=== PATIENT | female | born 1950 | race Caucasian/White ===

== ENCOUNTER → 2017-07-07 | Outpatient (CLI) | payer MEDICARE ==
--- NOTE | 2017-07-07 23:16 | MR ---
EXAMINATION TYPE: MR angio head wo con DATE OF EXAM: 07/07/2017 COMPARISON: NONE HISTORY: Intracranial hemorrahage in Mar 2017, left side weakness TECHNIQUE: Time of flight images focusing on the [place] of [place] were performed without contrast. FINDINGS: There is arterial flow in the anterior middle and posterior cerebral arteries. There is art erial flow in the vertebrobasilar artery system. I see no sign of aneurysm or neovascularity. There i s no mass effect. There is no evidence of arterial stenosis. There is arterial flow in both internal carotid arteries. The basilar artery appears to fill mostly from the left side. The right middle cere bral artery appears normal. IMPRESSION: Negative MR angiogram of the brain.
--- NOTE | 2017-07-07 23:32 | MR ---
EXAMINATION TYPE: MR brain wo/w con DATE OF EXAM: 07/07/2017 COMPARISON: CT brain 03/15/2017 HISTORY: TECHNIQUE: Multiplanar, multisequence images of the brain and brainstem is performed without and with IV contras t, utilizing 7.5 mL intravenous Gadavist . FINDINGS: There is a 4 x 3.5 cm area of mixed signal involving the insula right temporal lobe and the right int ernal capsule and lateral aspect of the right thalamus related to hemosiderin and methemoglobin in th e area of hemorrhagic high density lesion seen on the CT scan of 03/15/2017. The size of the lesion i s smaller than the old CT scan. There is no midline shift. There is no sign of intracranial hemorrhag e. There is extensive patchy abnormal increased signal in the white matter in both parietal lobes. The c erebellum appears intact. Brainstem is intact. There is thinning of the corpus callosum. There is a 8 x 17 mm area of enhancement in the lesion. No other regions of pathologic enhancement are identified . IMPRESSION: Mixed signal lesion in the right cerebral hemisphere with some linear pathologic enhancem ent consistent with vascular malformation and resolving cerebral parenchymal hemorrhage. The size of the hemorrhage is decreased compared to the old CT scan. There is no evidence of any new hemorrhage. There is extensive white matter signal changes in both cerebral hemispheres that is nonspecific and c ould relate to chronic small vessel ischemia. Demyelinating disease is also possible.
== END ==
LOC: RADMRIMAIN 19:39
PROVIDERS: ATTEND Psychiatry & Neurology Neurology
DX: D18.02 Hemangioma of intracranial structures (principal)
CPT/HCPCS: 82565; 70544; 70553; 36415; A9581

== ENCOUNTER → 2017-07-20 | Outpatient (CLI) | payer MEDICARE ==
--- NOTE | 2017-07-20 12:09 | FL ---
Modified barium swallow. HISTORY: Dysphagia. Modified barium swallow was performed with the department of speech pathology. The patient was prese nted with various consistencies of barium. There is no evidence for aspiration or penetration. Full report is to follow from the department of speech pathology. Impression: Normal study.
== END | disposition home or self-care (01) ==
LOC: RADFLMAIN 11:11
PROVIDERS: ATTEND Family Medicine
DX: R13.10 Dysphagia, unspecified (principal)
CPT/HCPCS: 74230

== ENCOUNTER → 2017-10-04 | Outpatient (CLI) | payer MEDICARE ==
[2017-10-04 07:41] LABS: HCT 37.7 % (34.0-46.0); HGB 12.3 gm/dL (11.4-16.0); MCH 29.6 pg (25.0-35.0); MCHC 32.7 g/dL (31.0-37.0); MCV 90.5 fL (80.0-100.0); Mean Platelet Volume 7.2; Platelet Count 163 k/uL (150-450); RBC 4.16 m/uL (3.80-5.40); RDW 13.7 % (11.5-15.5); WBC 4.3 k/uL (3.8-10.6)
[2017-10-04 07:54] LABS: Calcium 9.3 mg/dL (8.4-10.2); Potassium 4.2 mmol/L (3.5-5.1)
== END ==
LOC: LABWHC1 07:17
PROVIDERS: ATTEND Family Medicine
DX: E78.5 Hyperlipidemia, unspecified (principal); I10 Essential (primary) hypertension
CPT/HCPCS: 36415; 80048; 80061; 84450; 84460; 85027

== ENCOUNTER → 2019-02-19 | Outpatient (CLI) | payer MEDICARE ==
--- NOTE | 2019-02-20 13:31 | MM ---
Reason for exam: screening (asymptomatic). History: Patient is postmenopausal, history of other cancer, and had first child at age 33. Physical Findings: A clinical breast exam by your physician is recommended on an annual basis and results should be correlated with mammographic findings. MG Screening Mammo w CAD Bilateral CC and MLO view(s) were taken. No prior studies available for comparison. The breast tissue is heterogeneously dense. This may lower the sensitivity of mammography. Bilateral nonspecific microcalcifications. ASSESSMENT: Incomplete: need additional imaging evaluation, BI-RAD 0 RECOMMENDATION: Special view mammogram of both breasts. [facility] will attempt to contact patient to return for supplemental views.
== END | disposition home or self-care (01) ==
LOC: RADMAMWWP 15:34
PROVIDERS: ATTEND Family Medicine
DX: Z12.31 Encounter for screening mammogram for malignant neoplasm of breast (principal)
CPT/HCPCS: 77067

== ENCOUNTER → 2019-02-26 | Outpatient (CLI) | payer MEDICARE ==
--- NOTE | 2019-02-27 09:14 | MM ---
Reason for exam: additional evaluation requested from abnormal screening. Last mammogram was performed less than 1 month ago. History: Patient is postmenopausal, history of other cancer, and had first child at age 33. Physical Findings: Nurse did not find any significant physical abnormalities on exam. MG 3D Work Up W/Cad [facility] Bilateral CC and MLO view(s) were taken. Prior study comparison: February 19, 2019, bilateral MG screening mammo w CAD. The breast tissue is heterogeneously dense. This may lower the sensitivity of mammography. There are 3 groups of calcifications in the right breast. First is upper inner quadrant middle depth 4mm, 5.7mm group right upper inner quadrant posterior depth and 4mm group in the lower inner quadrant at middle depth. Middle depth groups are skin calcifications. On the left the two groups of the upper inner quadrant appear as skin calcifications. The calcifications at posterior depth of the right upper inner quadrant are just deep to the skin surface and mostly round. 6 month follow up recommended. These results were verbally communicated with the patient and result sheet given to the patient on 02/26/19. ASSESSMENT: Probably benign, BI-RAD 3 RECOMMENDATION: Follow-up diagnostic mammogram of the right breast in 6 months.
== END | disposition home or self-care (01) ==
LOC: RADMAMWWP 13:35
PROVIDERS: ATTEND Family Medicine
DX: R92.1 Mammographic calcification found on diagnostic imaging of breast (principal)
CPT/HCPCS: 77066; G0279; 77062

== ENCOUNTER 2019-05-03 08:12 | Day surgery (SDC) | payer MEDICARE ==
[2019-04-30 15:26] VITALS: BMI 27.4
[~2019-05-03 08:12] MED LIST: LACTATED RINGERS 1,000 ML IV SCH; LIDOCAINE 1% 20 ML VIAL (10MG/ML) FOR IV START INTRADERMA PRN
[2019-05-03 09:14] VITALS: RESP 16; TEMP 97.6
[2019-05-03] MEDS ORDERED: PROPOFOL 10 MG/ML 20 ML VIAL IV ONE (09:15)
--- NOTE | 2019-05-03 09:19 | P.GSHP ---
History of Present Illness H&P Date: 05/03/19 Chief Complaint: Colon cancer screening Patient here today for screening colonoscopy. She has not had one previously. No bowel related complaints. No family history of colon cancer. Past Medical History Past Medical History: Cancer, CVA/TIA, Hyperlipidemia, Hypertension, Memory Impairment Additional Past Medical History / Comment(s): CVA-02/2017-. SKIN CANCER 3 YEARS AGO History of Any Multi-Drug Resistant Organisms: None Reported Past Surgical History: Section Additional Past Surgical History / Comment(s): COLONOSCOPY. BASAL CELL REMOVED FROM LT EYEBROW. PEG TUBE INSERTED AND LATER REMOVED. BILAT CATARACTS REMOVED Past Anesthesia/Blood Transfusion Reactions: No Reported Reaction Smoking Status: Former smoker - Past Family History Father Family Medical History: Cancer Medications and Allergies Home Medications Medication Instructions Recorded Confirmed Type Aspirin 81 mg PO DAILY 03/15/17 05/03/19 History Atorvastatin [Lipitor] 40 mg PO HS 04/30/19 05/03/19 History Cholecalciferol [Vitamin D3 (25 1,000 unit PO DAILY 04/30/19 05/03/19 History Mcg = 1000 Iu)] Labetalol [Trandate] 400 mg PO TID 04/30/19 05/03/19 History Lisinopril [Zestril] 20 mg PO BID 04/30/19 05/03/19 History Multivitamin [Multivitamins Adult 1 each PO DAILY 04/30/19 05/03/19 History Gummies] amLODIPine [Norvasc] 2.5 mg PO DAILY 04/30/19 05/03/19 History Allergies Allergy/AdvReac Type Severity Reaction Status Date / Time codeine Allergy Unknown Nausea & Verified 05/03/19 08:58 Vomiting shellfish derived [Shellfish] Allergy Rash/Hives Verified 05/03/19 08:58 Surgical - Exam Vital Signs Temp Pulse Resp BP Pulse Ox 97.6 F 86 16 118/77 94 L 05/03/19 09:07 05/03/19 09:07 05/03/19 09:07 05/03/19 09:07 05/03/19 09:07 Physical exam: General: Well-developed, well-nourished HEENT: Normocephalic, sclerae nonicteric Abdomen: Nontender, nondistended Extremities: No edema Neuro: Alert and oriented Assessment and Plan (1) Colon cancer screening Narrative/Plan: Will proceed with colonoscopy Current Visit: Yes Status: Acute Code(s): Z12.11 - ENCOUNTER FOR SCREENING FOR MALIGNANT NEOPLASM OF COLON SNOMED Code(s): 318225893
--- NOTE | 2019-05-03 09:39 | P.PCN ---
Date of Procedure: 05/03/19 Procedure(s) Performed: PREOPERATIVE DIAGNOSIS: Colon cancer screening POSTOPERATIVE DIAGNOSIS: Mild diverticulosis PROCEDURE: Colonoscopy ANESTHESIA: MAC SURGEON: Miguel Angel Padgett M.D. SPECIMENS: None ENDOSCOPIC PROCEDURE: The patient was placed on the endoscopy table in the left decubitus position. The Olympus colonoscope was inserted into the anus and passed under direct visualization to the base of the cecum. The appendiceal orifice was visualized. From that point the scope was slowly withdrawn inspecting all surfaces carefully. There were no neoplastic inflammatory or polypoid lesions throughout the cecum, ascending, transverse, descending, sigmoid and rectum. There was mild left-sided diverticulosis noted. Digital rectal examination was normal. The patient was taken to the recovery room in stable condition per anesthesia guidelines. RECOMMENDATIONS: Increase fiber. Follow-up colonoscopy 10 years.
[2019-05-03 09:59] VITALS: BP 115/71; PULSE 80
== END 2019-05-03 10:44 | disposition home or self-care (01) ==
LOC: ORWHC2ENDO 08:12
PROVIDERS: ATTEND Surgery
DX: Z12.11 Encounter for screening for malignant neoplasm of colon (principal); K57.30 Diverticulosis of large intestine without perforation or abscess without bleeding; E78.5 Hyperlipidemia, unspecified; I10 Essential (primary) hypertension; R41.3 Other amnesia; Z85.828 Personal history of other malignant neoplasm of skin; Z87.891 Personal history of nicotine dependence; Z98.891 History of uterine scar from previous surgery; Z98.890 Other specified postprocedural states; Z98.41 Cataract extraction status, right eye; Z98.42 Cataract extraction status, left eye; Z86.73 Personal history of transient ischemic attack (TIA), and cerebral infarction without residual deficits; Z79.82 Long term (current) use of aspirin; Z79.899 Other long term (current) drug therapy; Z88.5 Allergy status to narcotic agent; Z91.013 Allergy to seafood
CPT/HCPCS: J2704; G0121

== ENCOUNTER → 2020-01-29 | Outpatient (CLI) | payer MEDICARE ==
--- NOTE | 2020-01-29 14:24 | MM ---
Reason for exam: follow-up at short interval from prior study. Last mammogram was performed 11 months ago. History: Patient is postmenopausal, history of other cancer, and had first child at age 33. Physical Findings: Nurse did not find any significant physical abnormalities on exam. MG 3D Diag Mammo W/Cad RT CC and MLO view(s) were taken of the right breast. Prior study comparison: February 26, 2019, bilateral MG 3d work up w/cad [facility]. February 19, 2019, bilateral MG screening mammo w CAD. The breast tissue is heterogeneously dense. This may lower the sensitivity of mammography. Only one group of calcifications is now seen in the upper inner quadrant centrally, middle to posterior depth, unchanged for 11 months. Continued short term follow up recommended. These results were verbally communicated with the patient and result sheet given to the patient on 01/29/20. ASSESSMENT: Probably benign, BI-RAD 3 RECOMMENDATION: Follow-up diagnostic mammogram of both breasts in 1 year. Back on schedule for February 2020.
== END | disposition home or self-care (01) ==
LOC: RADMAMWWP 12:55
PROVIDERS: ATTEND Family Medicine
DX: R92.8 Other abnormal and inconclusive findings on diagnostic imaging of breast (principal)
CPT/HCPCS: 77065; G0279; 77061

== ENCOUNTER → 2021-05-26 | Outpatient (CLI) | payer MEDICARE ==
--- NOTE | 2021-05-26 14:33 | MM ---
Reason for exam: additional evaluation requested from prior study. Last mammogram was performed 1 year and 4 months ago. History: Patient is postmenopausal, history of other cancer, and had first child at age 33. Physical Findings: Nurse did not find any significant physical abnormalities on exam. MG 3D Diag Mammo W/Cad [facility] Bilateral CC and MLO view(s) were taken. XCCL view(s) were taken of the right breast. Prior study comparison: January 29, 2020, right breast MG 3d diag mammo w/cad [facility]. February 26, 2019, bilateral MG 3d work up w/cad [facility]. The breast tissue is heterogeneously dense. This may lower the sensitivity of mammography. A group of microcalcifications on either side corresponds to benign skin calcifications and are unchanged. No significant new findings when compared with previous films. These results were verbally communicated with the patient and result sheet given to the patient on 05/26/21. ASSESSMENT: Benign, BI-RAD 2 RECOMMENDATION: Routine screening mammogram of both breasts in 1 year.
== END | disposition home or self-care (01) ==
LOC: RADMAMWWP 12:46
PROVIDERS: ATTEND Family Medicine
DX: R92.8 Other abnormal and inconclusive findings on diagnostic imaging of breast (principal); Z78.0 Asymptomatic menopausal state
CPT/HCPCS: 77066; G0279; 77062

== ENCOUNTER → 2023-06-22 | Outpatient (CLI) | payer MEDICARE ==
--- NOTE | 2023-06-22 10:30 | MM ---
Reason for Exam: Screening (asymptomatic). Last mammogram was performed 2 year(s) and 1 month(s) ago. Patient History: Menarche at age 12. First Full-Term at age 33. Late child-bearing (after 30). Postmenopausal. Other cancer. Risk Values: Rachel 5 year model risk: 2.2%. NCI Lifetime model risk: 5.1%. Prior Study Comparison: 02/26/2019 Bilateral Diagnostic Mammogram, [facility]. 01/29/2020 Right Diagnostic Mammogram, [facility]. 05/26/2021 Bilateral Diagnostic Mammogram, [facility]. Tissue Density: The breast tissue is heterogeneously dense. This may lower the sensitivity of mammography. Findings: Analyzed By CAD. There is no suspicious group of microcalcifications or new suspicious mass. Overall Assessment: Negative, BI-RAD 1 Management: Screening Mammogram of both breasts in [address] [facility] will attempt to contact patient to return for supplemental views and ultrasound if indicated. Patient should continue monthly self-breast exams. A clinical breast exam by your physician is recommended on an annual basis. This exam should not preclude additional follow-up of suspicious palpable abnormalities. Note on Rachel scores and lifetime risk: 1. A Rachel score greater than 3% is considered moderate risk. If this is the case, consider specialist referral to assess eligibility for a risk reducing agent. 2. If overall lifetime risk for the development of breast cancer is 20% or higher, the patient may qualify for future screening with alternating mammogram and breast MRI. Electronically signed and approved by: Michael Blas DO
== END | disposition home or self-care (01) ==
LOC: RADMAMWWP 10:04
PROVIDERS: ATTEND Family Medicine
DX: Z12.31 Encounter for screening mammogram for malignant neoplasm of breast (principal); Z78.0 Asymptomatic menopausal state
CPT/HCPCS: 77063; 77067

== ENCOUNTER → 2024-07-26 | Outpatient (CLI) | payer MEDICARE ==
--- NOTE | 2024-07-26 16:15 | MM ---
Reason for Exam: Screening (asymptomatic). Last mammogram was performed 1 year(s) and 1 month(s) ago. Patient History: Menarche at age 12. First Full-Term at age 33. Late child-bearing (after 30). Postmenopausal. Other cancer. Risk Values: Rachel 5 year model risk: 2.2%. NCI Lifetime model risk: 4.8%. Prior Study Comparison: 01/29/2020 Right Diagnostic Mammogram, [facility]. 05/26/2021 Bilateral Diagnostic Mammogram, [facility]. 06/22/2023 Bilateral MG 3D screening mammo w/cad, [facility]. Tissue Density: The breasts are heterogeneously dense, which may obscure small masses. Findings: Analyzed By CAD. Asymmetric density superior subareolar right MLO view and also superior right MLO view posterior depth. These areas appear more defined but may represent superimposition shadow. Further evaluation recommended. Similarly, an ovoid asymmetric density subareolar left MLO view is also more defined. Otherwise, no significant change. Overall Assessment: Incomplete: need additional imaging evaluation, BI-RAD 0 Management: Special View Mammogram of both breasts. [facility] will attempt to contact patient to return for supplemental views and ultrasound if indicated. [facility], , 07/26/2024 4:12 PM. Electronically signed and approved by: Kelley Hawk M.D. Radiologist
== END | disposition home or self-care (01) ==
LOC: RADMAMWWP 13:52
PROVIDERS: ATTEND Family Medicine
DX: Z12.31 Encounter for screening mammogram for malignant neoplasm of breast (principal); R92.333 Mammographic heterogeneous density, bilateral breasts; Z78.0 Asymptomatic menopausal state
CPT/HCPCS: 77063; 77067

== ENCOUNTER → 2024-08-01 | Outpatient (CLI) | payer MEDICARE ==
--- NOTE | 2024-08-01 11:30 | MM ---
Reason for Exam: Follow-up at short interval from prior study. Last screening mammogram was performed less than 1 month ago. Patient History: Menarche at age 12. First Full-Term at age 33. Late child-bearing (after 30). Postmenopausal. Other cancer. Risk Values: Rachel 5 year model risk: 2.2%. NCI Lifetime model risk: 4.8%. Prior Study Comparison: 06/22/2023 Bilateral MG 3D screening mammo w/cad, [facility]. 07/26/2024 Bilateral MG 3D screening mammo w/cad, [facility]. Tissue Density: The breasts are heterogeneously dense, which may obscure small masses. Findings: Analyzed By CAD. No persistent mass or distortion. No suspicious microcalcifications. Overall Assessment: Benign, BI-RAD 2 Management: Screening Mammogram of both breasts in 1 year. . Results were given to the patient verbally at the time of exam. Patient should continue monthly self-breast exams. A clinical breast exam by your physician is recommended on an annual basis. This exam should not preclude additional follow-up of suspicious palpable abnormalities. Note on Rachel scores and lifetime risk: 1. A Rachel score greater than 3% is considered moderate risk. If this is the case, consider specialist referral to assess eligibility for a risk reducing agent. 2. If overall lifetime risk for the development of breast cancer is 20% or higher, the patient may qualify for future screening with alternating mammogram and breast MRI. [facility], , 08/01/2024 11:27 AM. Electronically signed and approved by: Anthony Fish M.D. Radiologis
== END | disposition home or self-care (01) ==
LOC: RADMAMWWP 11:03
PROVIDERS: ATTEND Family Medicine
DX: R92.8 Other abnormal and inconclusive findings on diagnostic imaging of breast (principal); R92.333 Mammographic heterogeneous density, bilateral breasts; Z78.0 Asymptomatic menopausal state
CPT/HCPCS: 77066; G0279; 77062